=== PATIENT | male | born 1945 | race Caucasian/White ===

== ENCOUNTER 2016-07-12 06:48 | Day surgery (SDC) | payer BC, OTHER ==
[2016-07-09 09:55] LABS: HEMATOCRIT 45.2 % (40.0-51.0)
[2016-07-09 11:08] LABS: ALBUMIN 3.5 G/DL (3.5-5.0); BUN (BLOOD UREA NITROGEN) 16 MG/DL (6-23); CALCIUM, SERUM 9.2 MG/DL (8.5-10.4); CHLORIDE, SERUM 102 MMOL/L (96-112); CO2 (CARBON DIOXIDE) 28 MMOL/L (24-34); CREATININE 0.74 MG/DL (0.70-1.30); GFR AFRICAN AMERICAN 109 ML/MIN (>=60); GFR NON AFRICAN AMERICAN 94 ML/MIN (>=60); GLOBULIN 3.5 G/DL (2.5-4.1); GLUCOSE, SERUM 90 MG/DL (60-99); POTASSIUM, SERUM 4.3 MMOL/L (3.5-5.3); SGOT(AST) 17 U/L (5-40); SGPT(ALT) 27 U/L (5-65); SODIUM, SERUM 139 MMOL/L (135-148); TOTAL BILIRUBIN 0.2 MG/DL (0-1.2)
[2016-07-09 11:09] LABS: ALKALINE PHOSPHATASE 67 U/L (45-117)
--- NOTE | ~2016-07-12 | OP ---
Record Of Operation [address] [place]. [address] NAME: ROSEY LACEY : 47 STATUS : [facility] [place] PAT#: [id number] AGE: 70 ADM/REG DATE : 07/12/16 MR#: [id number] REPORT SERV DATE: 07/12/16 DICTATED BY: BRENDON RUTLEDGE DATE: 07/12/16 REPORT STATUS : Draft TRANSCRIBED BY: MODDejuan DATE: 07/12/16 DATE OF PROCEDURE: PREOPERATIVE DIAGNOSES: 1. Chronic cholecystitis with cholelithiasis. 2. Hypertension. 3. Hyperlipidemia. 4. Nicotine dependence. 5. Hypothyroidism. POSTOPERATIVE DIAGNOSES: 1. Chronic cholecystitis with cholelithiasis. 2. Hypertension. 3. Hyperlipidemia. 4. Nicotine dependence. 5. Hypothyroidism. PROCEDURE: Laparoscopic cholecystectomy. ANESTHESIA: General. SURGEON: Brendon Rutledge M.D. LUMBER STRAIGHTENER: Marifer. COMPLICATIONS: None. DRAINS: None. ESTIMATED BLOOD LOSS: 20 mL. FINDINGS: 1. The patient was noted to have a thickened gallbladder wall consistent with chronic cholecystitis with multiple yellow cholesterol stones. 2. There was no evidence of any cystic duct dilatation and normal preoperative liver function studies, therefore, no cholangiogram was obtained. OPERATIVE TECHNIQUE: The patient was brought to the operating room and placed on the table in supine position. He had preoperative IV antibiotics. He had sequential hose in place. He voided prior to the procedure. He underwent general endotracheal anesthesia and was prepped and draped in a sterile fashion and a time-out was completed. Local anesthesia was instilled to the periumbilical skin. A 15 blade knife was used to make incision to the base of the umbilicus. The skin and fascia were elevated and a Veress needle inserted. Water drop test was safely performed. An 11 mm trocar was inserted through the umbilicus followed by the laparoscope. There was no evidence of Veress or trocar injury. The patient was then placed in reverse Trendelenburg and rolled to the left. An 11 mm subxiphoid and two 5 mm Record Of Operation [address] [place]. [address] NAME: ROSEY LACEY : 47 STATUS : [facility] [place] PAT#: [id number] AGE: 70 ADM/REG DATE : 07/12/16 MR#: [id number] REPORT SERV DATE: 07/12/16 DICTATED BY: BRENDON RUTLEDGE DATE: 07/12/16 REPORT STATUS : Draft TRANSCRIBED BY: HAMMAD DATE: 07/12/16 right upper quadrant trocars were placed under direct visualization. The gallbladder fundus was grasped and elevated over the liver edge and the infundibulum retracted inferolaterally. The cystic duct gallbladder junction was identified in its lateral aspect and circumferentially dissected. Dissection more medial revealed the cystic artery and it was also bluntly dissected to its junction of the gallbladder. The patient then had two clips placed proximally and distally on the cystic duct and cystic artery and they were divided between the clips without encroachment of the common bile duct. The gallbladder was then removed from the hepatic fossa using electrocautery and was placed in a specimen bag and removed through the umbilicus. The laparoscope and trocar were reinserted and examination of the hepatic fossa was noted to be hemostatic. The clips were noted to be intact without encroachment of the common bile duct. There was no evidence of any bleeding, biliary spillage, or other visual abnormalities. At this point, all the instruments and trocars removed under direct visualization as the pneumoperitoneum was aspirated. The umbilical fascia was reapproximated in a [id number] Vicryl suture. The skin edges were reapproximated using absorbable subcuticular Monocryl sutures. Dermabond was applied. He was extubated and taken to the recovery room in stable condition. All sponge and needle counts were reported correct. /HMAMAD Brendon Rutledge M.D. / [id number] CC: Brii Bay M.D.
[~2016-07-12 06:48] MED LIST: ACET500CAP PO; ALEVE220 MG PO; ARMOUR THYRO120 MG PO; HYDROCHLOROT12.5 MG PO; LISINOPRIL40 MG PO; MULTIVIT/MIN PO
== END 2016-07-12 13:55 | disposition home or self-care (01) ==
LOC: SDC 06:48
PROVIDERS: Surgery
PROC: 0FT44ZZ Resection of Gallbladder, Percutaneous Endoscopic Approach (ICD-10-PCS; principal; 2016-07-12 09:00)
DX: K80.10 Calculus of gallbladder with chronic cholecystitis without obstruction (principal); I10 Essential (primary) hypertension; E78.5 Hyperlipidemia, unspecified; F17.210 Nicotine dependence, cigarettes, uncomplicated; E03.9 Hypothyroidism, unspecified; Z88.8 Allergy status to other drugs, medicaments and biological substances; Z79.899 Other long term (current) drug therapy; Z83.3 Family history of diabetes mellitus; Z98.890 Other specified postprocedural states
CPT/HCPCS: 80053; 85014; 85018; 88304; 93005; J0690; J1170; J1885; J2250; J2405; J2710; J3010